=== PATIENT | female | born 1945 | race Caucasian/White ===

== ENCOUNTER 2017-05-02 09:16 | Outpatient (CLI) | payer OTHER | END 2017-05-02 09:27 | disposition home or self-care (01) | LOC: MAMO-SONO 09:16 | DX: Z12.31 Encounter for screening mammogram for malignant neoplasm of breast (principal); Z87.898 Personal history of other specified conditions; D24.1 Benign neoplasm of right breast; D24.2 Benign neoplasm of left breast; E03.8 Other specified hypothyroidism; E04.2 Nontoxic multinodular goiter ==

== ENCOUNTER 2017-05-02 09:29 | Outpatient (CLI) | payer OTHER | END 2017-05-02 09:35 | disposition home or self-care (01) | LOC: RAD 09:29 | DX: I70.0 Atherosclerosis of aorta (principal) ==

== ENCOUNTER 2017-05-02 11:09 | Outpatient (CLI) | payer OTHER | END 2017-05-02 11:14 | disposition home or self-care (01) | LOC: NUCLEAR 11:09 | DX: Z13.820 Encounter for screening for osteoporosis (principal); M81.0 Age-related osteoporosis without current pathological fracture ==

== ENCOUNTER 2018-03-22 12:14 | Outpatient (CLI) | payer OTHER | END 2018-03-22 13:09 | disposition home or self-care (01) | LOC: RAD 12:14 | DX: S29.8XXA Other specified injuries of thorax, initial encounter (principal) ==

== ENCOUNTER 2018-05-23 14:09 | Outpatient (CLI) | payer OTHER | END 2018-05-23 14:20 | disposition home or self-care (01) | LOC: MAMO-SONO 14:09 | DX: Z12.31 Encounter for screening mammogram for malignant neoplasm of breast (principal); Z87.898 Personal history of other specified conditions; D24.2 Benign neoplasm of left breast; E04.2 Nontoxic multinodular goiter ==

== ENCOUNTER 2019-05-16 10:36 | Outpatient (CLI) | payer OTHER | END 2019-05-16 10:42 | disposition home or self-care (01) | LOC: SONOGRAMA 10:36 | DX: E04.2 Nontoxic multinodular goiter (principal); R10.13 Epigastric pain ==

== ENCOUNTER 2020-02-27 13:01 | Outpatient (CLI) | payer OTHER | END 2020-02-27 13:17 | disposition home or self-care (01) | LOC: MAMO-SONO 13:01 | DX: Z12.31 Encounter for screening mammogram for malignant neoplasm of breast (principal); N64.59 Other signs and symptoms in breast ==

== ENCOUNTER 2020-05-29 08:41 | Emergency (ER) | payer OTHER ==
[~2020-05-29] VITALS: Ht 165.1 cm; Wt 68.0 kg
[2020-05-29] MEDS ORDERED: SYNTHROID75 MCG PO (08:54)
[2020-05-29] MEDS ORDERED: SYNTHROID50 MCG (08:54)
[2020-05-29] MEDS ORDERED: MAGNESIUM30 MG (08:55)
[2020-05-29] MEDS ORDERED: VITAMIN D31 ML MC (08:55)
[2020-05-29] MEDS ORDERED: VITAMIN C500 M6 (08:55)
[2020-05-29] MEDS ORDERED: VOLTAREN100 GM TOP (10:33)
[2020-05-29] MEDS ORDERED: ORPHENADRINE C100 MG PO (10:33)
[2020-05-29] MEDS ORDERED: KETO10TA2 PO (10:33)
== END 2020-05-29 10:52 | disposition home or self-care (01) ==
LOC: ER 08:41
DX: S23.41XA Sprain of ribs, initial encounter (principal); X50.0XXA Overexertion from strenuous movement or load, initial encounter; Y93.F2 Activity, caregiving, lifting; Y92.89 Other specified places as the place of occurrence of the external cause; Y99.8 Other external cause status

== ENCOUNTER 2020-06-30 09:00 | Outpatient (CLI) | payer OTHER ==
[~2020-06-30 09:00] MED LIST: KETO10TA2 PO; MAGNESIUM30 MG; ORPHENADRINE C100 MG PO; SYNTHROID50 MCG; SYNTHROID75 MCG PO; VITAMIN C500 M6; VITAMIN D31 ML MC; VOLTAREN100 GM TOP
== END 2020-06-30 09:08 | disposition home or self-care (01) ==
LOC: RAD 09:00
PROVIDERS: ATTEND Podiatrist Foot Surgery
DX: M20.21 Hallux rigidus, right foot (principal)

== ENCOUNTER 2020-07-03 13:47 | Outpatient (CLI) | payer OTHER | END 2020-07-03 13:53 | disposition home or self-care (01) | LOC: SONOGRAMA 13:47 | PROVIDERS: ATTEND Internal Medicine | DX: E04.2 Nontoxic multinodular goiter (principal) ==

== ENCOUNTER 2021-09-29 08:55 | Outpatient (CLI) | payer OTHER | END 2021-09-29 08:57 | disposition home or self-care (01) | LOC: NUCLEAR 08:55 | PROVIDERS: ATTEND Internal Medicine | DX: E04.2 Nontoxic multinodular goiter (principal); Z88.5 Allergy status to narcotic agent ==

== ENCOUNTER 2021-10-12 11:02 | Outpatient (CLI) | payer OTHER | END 2021-10-12 11:08 | disposition home or self-care (01) | LOC: MAMO-SONO 11:02 | PROVIDERS: ATTEND Internal Medicine | DX: Z12.31 Encounter for screening mammogram for malignant neoplasm of breast (principal); E04.2 Nontoxic multinodular goiter ==

== ENCOUNTER → 2022-03-24 | Outpatient (CLI) | payer OTHER | END | disposition home or self-care (01) | LOC: TOM 07:36 | PROVIDERS: ATTEND Internal Medicine Gastroenterology | DX: Z86.010 Personal history of colon polyps (principal) ==

== ENCOUNTER 2022-11-23 08:27 | Outpatient (CLI) | payer OTHER | END 2022-11-23 08:37 | disposition home or self-care (01) | LOC: MAMO-SONO 08:27 | PROVIDERS: ATTEND Internal Medicine | DX: D24.9 Benign neoplasm of unspecified breast (principal); N63.0 Unspecified lump in unspecified breast; E04.2 Nontoxic multinodular goiter; E03.8 Other specified hypothyroidism; Z12.31 Encounter for screening mammogram for malignant neoplasm of breast ==

== ENCOUNTER 2023-12-04 16:42 | Outpatient (CLI) | payer OTHER | END 2023-12-04 16:47 | disposition home or self-care (01) | LOC: MAMO-SONO 16:42 | PROVIDERS: ATTEND Internal Medicine | DX: D24.9 Benign neoplasm of unspecified breast (principal); N63.0 Unspecified lump in unspecified breast; E04.2 Nontoxic multinodular goiter; Z12.31 Encounter for screening mammogram for malignant neoplasm of breast ==

== ENCOUNTER 2024-07-19 09:30 | Outpatient (CLI) | payer OTHER | END 2024-07-19 09:31 | disposition home or self-care (01) | LOC: NUCLEAR 09:30 | PROVIDERS: ATTEND Internal Medicine | DX: Z13.820 Encounter for screening for osteoporosis (principal); M81.0 Age-related osteoporosis without current pathological fracture ==

== ENCOUNTER 2024-07-28 17:01 | Emergency (ER) | payer OTHER ==
[~2024-07-28] VITALS: Ht 165.1 cm; Wt 67.1 kg
[2024-07-28] MEDS ORDERED: LIPITOR20 MG PO (18:00)
[2024-07-28 19:34] LABS: HEMATOCRIT 43.1 % (36.0-45.00); HEMOGLOBIN 14.3 g/dL (12.0-15.00); MEAN CELL VOLUME 93.4 fL (80.00-100.00); MEAN CORPUSCULAR HEMOGLOBIN 30.9 pg (27.00-32.0); MEAN CORPUSCULAR HGB CONC 33.1 g/dl (32.0-36.0); PLATELET COUNT 270 K/uL (150-450); RED BLOOD COUNT 4.62 M/uL (4.00-6.00); RED CELL DISTRIBUTION WIDTH 13.3 % (11.5-14.5)
[2024-07-28 19:52] LABS: ALBUMIN 3.7 gm/dL (3.4-5.0); BILIRUBIN TOTAL 0.27 mg/dL (0.3-1.2); CALCIUM 9.2 mg/dL (8.5-10.1); CREATININE SERUM 0.76 mg/dL (0.55-1.02); GFR 73.22; GLOBULINA 3.5 G/DL (2.4-3.5); POTASSIUM 3.95 mEq/L (3.5-5.1); TOTAL PROTEIN 7.2 gm/dL (6.4-8.2)
[2024-07-28] MEDS ORDERED: NORFLEX100MG PO (19:54)
[2024-07-28 20:10] LABS: INR 0.98; PARTIAL THROMBOPLASTIN TIME 26.5 SECONDS (22.0-34.0); PROTHROMBIN TIME 10.7 SECONDS (9.0-11.5)
== END 2024-07-28 20:47 | disposition home or self-care (01) ==
LOC: ER 17:01
PROVIDERS: General Practice
DX: M25.562 Pain in left knee (principal); Z88.8 Allergy status to other drugs, medicaments and biological substances; M19.041 Primary osteoarthritis, right hand

== ENCOUNTER 2024-12-26 09:52 | Outpatient (CLI) | payer OTHER ==
[~2024-12-26 09:52] MED LIST changes: +LIPITOR20 MG PO; +NORFLEX100MG PO
== END 2024-12-26 09:55 | disposition home or self-care (01) ==
LOC: MAMO-SONO 09:52
PROVIDERS: ATTEND Internal Medicine
DX: D24.9 Benign neoplasm of unspecified breast (principal); Z12.31 Encounter for screening mammogram for malignant neoplasm of breast; E04.2 Nontoxic multinodular goiter; E03.8 Other specified hypothyroidism

== ENCOUNTER 2025-02-06 09:12 | Outpatient (CLI) | payer OTHER | END 2025-02-06 09:17 | disposition home or self-care (01) | LOC: SONOGRAMA 09:12 | PROVIDERS: ATTEND Pathology Anatomic Pathology & Clinical Pathology | DX: D34 Benign neoplasm of thyroid gland (principal); E07.89 Other specified disorders of thyroid; E04.2 Nontoxic multinodular goiter ==